=== PATIENT | male | born 1950 | race Caucasian/White ===

== ENCOUNTER 2017-07-19 11:53 | Emergency (ER) | payer MEDICARE, MEDICAID ==
[~2017-07-19] VITALS: Ht 180.3 cm; Wt 73.2 kg
[2017-07-19 12:11] VITALS: BP 112/73
== END 2017-07-19 14:20 | disposition home or self-care (01) ==
LOC: EMS 12:02 → EDBD 12:02 → EMS 14:20
DX: R20.0 Anesthesia of skin (principal)
CPT/HCPCS: 99281